=== PATIENT | female | born 1985 | race Two or more races ===

== ENCOUNTER 2017-04-29 10:23 | Inpatient (IN) | payer OTHER ==
[~2017-04-29] VITALS: Ht 175.3 cm; Wt 161.0 kg
[2017-06-04] MEDS ORDERED: PRENATAL 19 TA1 EAC1 PO (09:36)
[2017-06-04] MEDS ORDERED: MACROBID 100 M100 MG PO (09:37)
== END 2017-06-06 12:48 | DRG 775 ==
LOC: OB/GYN 06-04 08:46 → LDR 06-04 08:46 → OB/GYN 06-04 12:24 → LDR 06-08 10:22
PROC: 0UQGXZZ Repair Vagina, External Approach (ICD-10-PCS; principal; 2017-06-04)
PROC: 10E0XZZ Delivery of Products of Conception, External Approach (ICD-10-PCS; 2017-06-04)
PROC: 4A1HXCZ Monitoring of Products of Conception, Cardiac Rate, External Approach (ICD-10-PCS; 2017-06-04)
PROC: 4A033R1 Measurement of Arterial Saturation, Peripheral, Percutaneous Approach (ICD-10-PCS; 2017-06-04)
DX: O71.4 Obstetric high vaginal laceration alone (principal); O69.81X0 Labor and delivery complicated by cord around neck, without compression, not applicable or unspecified; Z3A.39 39 weeks gestation of pregnancy; Z37.0 Single live birth